=== PATIENT | male | born 1990 | race Caucasian/White ===

== ENCOUNTER 2018-03-09 13:19 | Emergency (ER) | payer SELFPAY ==
[2018-03-09 13:31] VITALS: BMI 24.2
[2018-03-09 13:36] VITALS: TEMP 97.8; O2SAT 100
[2018-03-09 14:19] VITALS: RESP 18
[2018-03-09 14:38] LABS: BASO % 0.2 % (0.0-2.0); EOS % 0.3 % (0.0-4.0); HEMOGLOBIN 17.4 g/dL (12.0-18.0); LYMPH % 7.1 % (20.0-40.0); MEAN CELL VOLUME 84.5 fL (80.0-94.0); MEAN CORPUSCULAR HEMOGLOBIN 28.8 pg (27.0-31.0); MEAN PLATELET VOLUME 8.5 fL (7.2-11.7); MONO # 0.8 K/uL (0.0-0.8); MONO % 5.4 % (0.0-10.0); NEUT # 12.3 K/uL (1.8-7.0); NRBC % 0.1 % (0.0-2.0); PLATELET COUNT 249 K/uL (130-400); RBC 6.04 Mil/uL (4.40-5.90); RED CELL DISTRIBUTION WIDTH 13.2 % (11.5-14.5); WHITE BLOOD COUNT 14.1 K/uL (4.8-10.8)
[2018-03-09 14:41] LABS: URINE BILIRUBIN NEGATIVE (NEGATIVE); URINE BLOOD NEGATIVE (NEGATIVE); URINE CLARITY Clear (Clear); URINE COLOR Straw (YELLOW); URINE GLUCOSE (UA) NORMAL (Normal); URINE LEUKOCYTE ESTERASE NEG Leu/uL (Negative); URINE PROTEIN NEGATIVE (NEGATIVE); URINE UROBILINOGEN NORMAL mg/dL (0.2-1.0)
[2018-03-09 14:51] LABS: ALB/GLOB RATIO 1.2 (1.0-2.1); ALBUMIN 4.4 g/dL (3.5-5.0); ALT/SGPT 29 U/L (21-72); AST/SGOT 28 U/L (17-59); BLOOD UREA NITROGEN 9 mg/dL (9-20); CALCIUM 9.4 mg/dl (8.6-10.4); GFR AFRICAN-AMERICAN > 60; GFR NON-AFRICAN AMERICAN > 60
[2018-03-09 14:54] LABS: BARBITURATES, UR NEGATIVE (NEGATIVE); BENZODIAZEPINES, UR NEGATIVE (NEGATIVE); OPIATES, UR NEGATIVE (NEGATIVE); PHENCYCLIDINE, UR NEGATIVE (NEGATIVE)
[2018-03-09 14:57] LABS: ACETAMINOPHEN < 10.0 ug/mL (10.0-30.0); SALICYLATE < 1.0 mg/dL 1
[2018-03-09 15:33] VITALS: BP 150/89; PULSE 106
--- NOTE | 2018-03-09 15:42 | C.PDOC ---
Time Seen by Provider: 03/09/18 13:45 Chief Complaint (Nursing): Substance Abuse History Per: Patient, EMS History/Exam Limitations: intoxication Onset/Duration Of Symptoms: Unknown (today) Current Symptoms Are (Timing): Still Present Suicide/Self Injury Attempted (Context): None Modifying Factor(s): Other (Methamphetamine) Severity: Moderate Associated Symptoms: Agitation. denies: Suicidal Thoughts, Suicidal Plan Additional History Per: Prior Records Past Medical History Reviewed: Historical Data, Nursing Documentation, Vital Signs Vital Signs: Last Vital Signs Temp 97.8 F 03/09/18 13:20 Pulse 106 H 03/09/18 15:30 Resp 18 03/09/18 15:30 BP 150/89 03/09/18 15:30 Pulse Ox 100 03/09/18 15:30 - Medical History PMH: No Chronic Diseases Family History: States: Unknown Family Hx - Social History Hx Tobacco Use: Yes Hx Alcohol Use: Yes Hx Substance Use: Yes Review Of Systems Except As Marked, All Systems Reviewed And Found Negative. Constitutional: Negative for: Fever Cardiovascular: Negative for: Chest Pain Respiratory: Negative for: Shortness of Breath Gastrointestinal: Negative for: Vomiting, Abdominal Pain Musculoskeletal: Negative for: Neck Pain Skin: Negative for: Rash Neurological: Negative for: Weakness, Numbness, Seizures Psych: Negative for: Psychosis Physical Exam - Physical Exam Appears: Non-toxic, Agitated, Other (Restless) Skin: Normal Color, Warm, Dry, No Rash Head: Atraumatic, Normacephalic Eye(s): bilateral: PERRL, EOMI Neck: Normal ROM, Supple Cardiovascular: Rhythm Regular Respiratory: Normal Breath Sounds, No Accessory Muscle Use Gastrointestinal/Abdominal: Soft, No Tenderness Extremity: Normal ROM Neurological/Psych: Oriented x3, Normal Motor, Normal Sensation ED Course And Treatment - Laboratory Results Result Diagrams: 03/09/18 14:35 03/09/18 14:35 Interpretation Of Abnormal: Positive for amphetamines O2 Sat by Pulse Oximetry: 100 Pulse Ox Interpretation: Normal Progress Note: After Ativan, pt is now calm and cooperative. He wants to go home right now. Reassessment Condition: Improved Disposition Counseled Patient/Family Regarding: Studies Performed, Diagnosis, Need For Followup, Smoking Cessation - Disposition Referrals: [facility] [Outside] Disposition: HOME/ ROUTINE Disposition Time: 15:43 Condition: IMPROVED Additional Instructions: Avoid any illicit drugs. Follow up with your doctor or in the clinic. Return to the ER if you develop suicidal or homicidal thoughts, worsening of symptoms or if you have any other concerns. Instructions: Drug Abuse and Drug Addiction (DC) - Clinical Impression Clinical Impression: Amphetamine abuse
[2018-03-09 16:54] LABS: BANDS 1 % (0-2); EOSINOPHIL 2 % (0-4); LYMPHOCYTE 3 % (20-40); NEUTROPHIL 93 % (50-75); PLATELET ESTIMATE NORMAL (NORMAL); REACTIVE LYMPHOCYTES 1 % (0-0); TOTAL CELLS COUNTED 100
[2018-03-09 16:56] LABS: MONOCYTE 0 % (0-10)
--- NOTE | 2018-03-11 19:27 | CARD ---
APPROVED REPORT EKG Measurement Heart [id number] <Conclusion> Normal sinus rhythm Early repolarization changes Normal ECG
== END 2018-03-09 16:09 | disposition home or self-care (01) ==
LOC: C.ER 13:19
DX: F15.10 Other stimulant abuse, uncomplicated (principal)
CPT/HCPCS: 80053; 81001; 82948; 85025; 93005; 96372; 99285; G0480; J2060

== ENCOUNTER 2018-10-07 22:01 | Emergency (ER) | payer OTHER, BC ==
[2018-10-07 22:18] VITALS: BMI 25.7
[2018-10-07] MEDS ORDERED: Sodium Chloride 0.9% 2,000 ML IV ONE (22:18)
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
[2018-10-07 22:34] LABS: BASO % 0.2 % (0.0-2.0); EOS % 0.2 % (0.0-4.0); HEMOGLOBIN 15.1 g/dL (12.0-18.0); LYMPH # 2.2 K/uL (1.0-4.3); LYMPH % 16.5 % (20.0-40.0); MEAN CELL VOLUME 83.3 fL (80.0-94.0); MEAN CORPUSCULAR HEMOGLOBIN 27.9 pg (27.0-31.0); MEAN CORPUSCULAR HGB CONC 33.5 g/dL (33.0-37.0); MEAN PLATELET VOLUME 8.7 fL (7.2-11.7); MONO % 7.4 % (0.0-10.0); NEUT # 9.9 K/uL (1.8-7.0); NEUT % 75.7 % (50.0-75.0); NRBC % 0.1 % (0.0-2.0); RBC 5.43 Mil/uL (4.40-5.90); RED CELL DISTRIBUTION WIDTH 13.8 % (11.5-14.5); WHITE BLOOD COUNT 13.1 K/uL (4.8-10.8)
[2018-10-07 22:39] LABS: INR 1.1; PROTHROMBIN TIME 11.7 SECONDS (9.7-12.2)
[2018-10-07 22:43] LABS: ALB/GLOB RATIO 1.7 (1.0-2.1); ALBUMIN 4.4 g/dL (3.5-5.0); ALT/SGPT 76 U/L (21-72); AST/SGOT 98 U/L (17-59); BLOOD UREA NITROGEN 13 mg/dL (9-20); CALCIUM 9.4 mg/dl (8.6-10.4); GFR NON-AFRICAN AMERICAN > 60
[2018-10-07 22:47] LABS: VENOUS BLOOD GAS BASE EXCESS 1.8 mmol/L (0.0-2.0); VENOUS BLOOD GAS PCO2 37 mmHg (40-60); VENOUS BLOOD GAS PO2 15 mm/Hg (30-55); VENOUS BLOOD PH 7.45 (7.32-7.43)
[2018-10-07] MEDS ORDERED: Morphine 4 MG/ML VIAL ONE (22:47)
[2018-10-07] MEDS ORDERED: Iohexol 350mg/ml 100 ML ONE (22:48)
[2018-10-07] MEDS ORDERED: Bacitracin 500 Units/gm Oint Foilpak UD ONE (23:51)
[2018-10-08] MEDS ORDERED: Bacitracin Ointment 30 GM TUBE TOP ONE (00:32)
[2018-10-08] MEDS ORDERED: Morphine 4 MG/ML VIAL ONE (01:13)
[2018-10-08] MEDS ORDERED: Morphine 4 MG/ML VIAL IV ONE (01:15)
[2018-10-08 01:25] VITALS: BP 132/88; PULSE 125; RESP 20; TEMP 98.6; O2SAT 96
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
== END 2018-10-08 02:03 | disposition short-term general hospital (02) ==
LOC: C.ER 22:01
DX: S32.10XA Unspecified fracture of sacrum, initial encounter for closed fracture (principal); S00.81XA Abrasion of other part of head, initial encounter; S80.212A Abrasion, left knee, initial encounter; S30.810A Abrasion of lower back and pelvis, initial encounter; V48.0XXA Car driver injured in noncollision transport accident in nontraffic accident, initial encounter; Y92.89 Other specified places as the place of occurrence of the external cause
CPT/HCPCS: 70450; 70480; 71045; 71260; 72125; 72131; 74177; 80053; 82803; 85025; 85610; 85730; 86850; 86900; 96374; 96375; 96376; 99285; G0480; J2270; J2405; J7030; Q9967